=== PATIENT | female | born 1985 | race Caucasian/White ===

== ENCOUNTER → 2019-12-05 17:22 | Outpatient (BNVA) | payer MEDICAID, SELFPAY | PROVIDERS: Family Provider Family Medicine; PCP Family Medicine; Visit Provider Family Medicine | DX: F41.9 Anxiety disorder, unspecified (principal); Z30.09 Encounter for other general counseling and advice on contraception; J30.9 Allergic rhinitis, unspecified; K21.9 Gastro-esophageal reflux disease without esophagitis; I10 Essential (primary) hypertension; G89.29 Other chronic pain; Z13.1 Encounter for screening for diabetes mellitus; Z83.3 Family history of diabetes mellitus; J11.1 Influenza due to unidentified influenza virus with other respiratory manifestations | CPT/HCPCS: 80053; 80061; 83036 ==

== ENCOUNTER → 2020-05-30 15:02 | Outpatient (BNVA) | payer MEDICAID, SELFPAY | PROVIDERS: Family Provider Family Medicine; PCP Family Medicine; Visit Provider Family Medicine | DX: M15.3 Secondary multiple arthritis (principal); I10 Essential (primary) hypertension; F41.9 Anxiety disorder, unspecified; K21.9 Gastro-esophageal reflux disease without esophagitis; R06.83 Snoring; G47.10 Hypersomnia, unspecified; R53.83 Other fatigue | CPT/HCPCS: 80053; 82607; 82652; 84443; 85025 ==

== ENCOUNTER → 2020-09-27 11:08 | Outpatient (BNVA) | payer MEDICAID, SELFPAY | PROVIDERS: Family Provider Family Medicine; PCP Family Medicine; Visit Provider Family Medicine | DX: M25.521 Pain in right elbow (principal); F41.9 Anxiety disorder, unspecified; J30.9 Allergic rhinitis, unspecified; K21.9 Gastro-esophageal reflux disease without esophagitis; M15.3 Secondary multiple arthritis; I10 Essential (primary) hypertension | CPT/HCPCS: 73080; 80048 ==

== ENCOUNTER → 2021-01-02 18:00 | Outpatient (BNVA) | payer MEDICAID, SELFPAY | PROVIDERS: Family Provider Family Medicine; PCP Family Medicine; Visit Provider Family Medicine | DX: F41.9 Anxiety disorder, unspecified (principal); M15.3 Secondary multiple arthritis; K21.9 Gastro-esophageal reflux disease without esophagitis; I10 Essential (primary) hypertension; J30.9 Allergic rhinitis, unspecified | CPT/HCPCS: 80048; 80061 ==

== ENCOUNTER → 2021-08-06 13:30 | Outpatient (BNVA) | payer MEDICAID, SELFPAY | PROVIDERS: Family Provider Family Medicine; PCP Family Medicine; Visit Provider Family Medicine | DX: Z74.09 Other reduced mobility (principal); M15.3 Secondary multiple arthritis; I10 Essential (primary) hypertension; R73.9 Hyperglycemia, unspecified; R53.83 Other fatigue; Z13.1 Encounter for screening for diabetes mellitus | CPT/HCPCS: 80053; 83036; 85025 ==

== ENCOUNTER → 2022-03-24 14:36 | Outpatient (BNVA) | payer MEDICAID, SELFPAY | PROVIDERS: Family Provider Family Medicine; PCP Family Medicine; Visit Provider Family Medicine | DX: I10 Essential (primary) hypertension (principal); L03.90 Cellulitis, unspecified; Z13.1 Encounter for screening for diabetes mellitus; R73.9 Hyperglycemia, unspecified; G25.81 Restless legs syndrome; L03.116 Cellulitis of left lower limb; R46.0 Very low level of personal hygiene | CPT/HCPCS: 80048; 83036; 85025 ==

== ENCOUNTER → 2022-12-17 14:58 | Outpatient (BNVA) | payer MEDICAID, SELFPAY | PROVIDERS: Family Provider Family Medicine; PCP Family Medicine; Visit Provider Family Medicine | DX: M15.3 Secondary multiple arthritis (principal); J30.9 Allergic rhinitis, unspecified; F41.9 Anxiety disorder, unspecified; Z30.09 Encounter for other general counseling and advice on contraception; I10 Essential (primary) hypertension; K58.0 Irritable bowel syndrome with diarrhea; G47.33 Obstructive sleep apnea (adult) (pediatric); J30.2 Other seasonal allergic rhinitis; K21.9 Gastro-esophageal reflux disease without esophagitis; R25.2 Cramp and spasm | CPT/HCPCS: 80053; 80061; 83735 ==